=== PATIENT | female | born 1965 | race Caucasian/White ===

== ENCOUNTER 2018-01-09 05:39 | Observation (INO) ==
[2018-01-09] MEDS ORDERED: Metoprolol Tartrate 25 MG Tablet PO SCH (06:00)
[2018-01-09] MEDS ORDERED: Chlorhexidine Gluconate 2% 1 Pack (2 Cloths) TOPICAL SCH (06:00)
[2018-01-09] MEDS ORDERED: Sodium Chlor 0.9% Inj 500 ML IV.SIG SCH (06:00)
[2018-01-09] MEDS ORDERED: Heparin - SQ 10,000 UNITS/ML Vial SQ SCH (06:30)
[2018-01-09] MEDS ORDERED: ceFAZolin 2 GM IV; once IV.SIG ONE (07:00)
[2018-01-09] MEDS ORDERED: Famotidine PF Inj 20 MG/2 ML Vial ONE (07:04)
[2018-01-09] MEDS: Lidocaine 1%/Epinephrine 1:100,000 Inj 30 ML Vial ONE ×2 (08:30→15:43)
[2018-01-09] MEDS ORDERED: RESP: Albuterol Concentrated 2.5 MG/0.5 ML Neb ONE (08:52)
[2018-01-09] MEDS ORDERED: Sugammadex Inj 200 MG/2 ML Vial IV.PUSH ONE (10:23)
[2018-01-09] MEDS ORDERED: fentaNYL Citrate Inj 100 MCG/2 ML Ampul ONE (11:05)
[2018-01-09] MEDS ORDERED: KCL 20 mEq/D5W/NaCl 0.45% Inj 1,000 ML ONE (11:41)
[2018-01-09] MEDS ORDERED: Phenylephrine/NS 1000 MCG/10ML Syringe IV.PUSH ONE (12:00)
[2018-01-09] MEDS ORDERED: LORazepam 0.5 MG Tablet PO PRN (12:00)
[2018-01-09] MEDS ORDERED: Ketorolac Inj 30 MG/ML (IVP) Vial IV.PUSH ONE (12:00)
[2018-01-09] MEDS ORDERED: Normosol-R pH 7.4 Inj 1,000 ML IV.CONT ONE (12:00)
[2018-01-09] MEDS: KCL 20 mEq/D5W/NaCl 0.45% Inj 1,000 ML IV.CONT SCH ×2 (12:00→19:47)
[2018-01-09] MEDS ORDERED: Lidocaine PF 1% Inj 5 ML Syringe INFILTRATN ONE (12:00)
--- NOTE | 2018-01-09 12:07 | MP ---
cc: Lyndsey Montesinos MD, Vidya MD Bacon,Radha GARG DATE OF OPERATION: 01/09/2018 DATE OF PROCEDURE: 01/09/2018 PREOPERATIVE DIAGNOSIS: Complex atypical hyperplasia/grade 1 endometrial cancer. POSTOPERATIVE DIAGNOSIS: Complex atypical hyperplasia/grade 1 endometrial cancer. PROCEDURE PERFORMED: Robotic-assisted laparoscopic hysterectomy, bilateral salpingo-oophorectomy. SURGEON: Lyndsey Montesinos MD AUTOMATIC LATHE TENDER: [place] [employer]. ANESTHESIA: General endotracheal anesthesia. ESTIMATED BLOOD LOSS: 50 mL. IV FLUIDS: 1300 mL. URINE OUTPUT: 300 mL. HISTORY OF PRESENT ILLNESS: A 52-year-old female with postmenopausal bleeding. Biopsy showed polyps and atypical hyperplasia and an area looked good looking like a grade 1 endometrial cancer. She was counseled regarding options, surgical versus medical. She is in favor of surgical management, favors minimally invasive techniques and presents now for that endeavor. She was seen again in the preoperative holding area. Findings and plan of care were discussed. Questions were asked and answered. She expressed good understanding and agreed to move forward. FINDINGS: The uterus sounded to 8 cm. Grossly it appeared normal. Tubes and ovaries grossly appeared normal. There were no appreciable enlarged lymph nodes. The peritoneal surfaces were normal with no peritoneal implants. The uterus, once removed, showed no overt evidence of invasive disease. Residual endometrial thickening suggested hyperplasia without obvious persistent cancer on frozen section. Certainly no invasive disease. DESCRIPTION OF PROCEDURE: She was taken to the operating room and placed in dorsal lithotomy position, after general endotracheal anesthesia was administered. A timeout was undertaken. She was identified by site recognition and hospital ID bracelet and the proposed procedure was reviewed and confirmed. She was carefully positioned in padded Raymond stirrups. Her arms were padded and secured to the sides. She was further secured to the operating table with egg crate padding and tape in a cross chest over the shoulder fashion. All sites noted to be properly aligned with no malalignment or pressure points. She was prepped and draped in usual sterile fashion and placed in lithotomy position. The cervix was grasped, uterine cavity sounded, cervix dilated, a standard VCare manipulator inserted and secured in usual fashion. Earl catheter was placed in the bladder. She was returned to the low lithotomy position. Change of sterile gloves were undertaken. We confirmed an orogastric tube in the stomach on suction. With manual elevation of the abdominal wall and direct laparoscopic visualization, 5 mm cannula introduced into the left upper quadrant. Carbon dioxide gas was insufflated. A 12 mm cannula was placed in the midline above the umbilicus, 8 mm cannula was placed in the right upper quadrant and left lateral quadrant, and the original 5 mm cannula exchanged for an 8 mm cannula. The anatomy was surveyed with findings as described above. Peritoneal washings were obtained for cytology. She was placed in Trendelenburg position and the small bowel was folded back on its mesenteric root. Three Ray-Daniel sponges were placed around the root of the small bowel mesentery. Robotic system brought into the operative field, attached in the usual fashion. Monopolar scissors, fenestrated bipolar forceps and ProGrasp manipulator was placed in arms number 1, 2, and 3 respectively, and I took my place at the surgeon's console. The right round ligament isolated, cauterized, transected. The anterior and posterior leafs of the broad ligament were opened. Right ureter was identified. Right infundibulopelvic ligament was isolated to the level of the pelvic brim where it was cauterized and transected. Posterior peritoneum opened along the right side of the uterus and cervix and the right vesicouterine peritoneum dissected off the lower uterine segment and cervix. The right uterine vessels were skeletonized, cauterized and transected, as were the cardinal, paracervical and uterosacral ligaments. Attention was directed toward the left. The left round ligament was isolated, cauterized and transected. The anterior and posterior leafs of the broad ligament, opened. The colon was adherent overlying the left pelvic sidewall covering the gonadal vessels and these were taken down with sharp dissection to isolate the gonadal vessels. The left ureter was identified. The intervening peritoneum was opened. The infundibulopelvic ligament was dissected to the level of the pelvic brim, where it was cauterized and transected. The posterior peritoneum opened along the left side of the uterus and cervix and the left vesicouterine peritoneum dissected off the lower uterine segment and cervix. Left uterine vessels were isolated, cauterized and transected, as were the cardinal, paracervical and uterosacral ligaments. Circumferential colpotomy was performed, the cervix from the upper vagina. The specimen was withdrawn transvaginally which included uterus, cervix, tubes and the pneumo-occluder balloon was placed into the vagina to maintain pneumoperitoneum. Instruments 1 and 3 exchanged for needle drivers as a 0 Vicryl suture was introduced. The vaginal cuff was closed starting at the left corner full thickness closure including the posterior peritoneum edge of the uterosacral ligament. tied via instrument tie, closure was held on countertraction as a running full thickness continuous closure was carried across the vaginal cuff, continued to the contralateral corner, where it was similarly fixed, secured and tied. The needle was cut and removed. The pelvis was thoroughly irrigated. All sites hemostatic. Good margin between the bladder edge and the vaginal cuff suture line. Good peristalsis of ureters bilaterally. Pathology came back showing no invasive cancer, and it was felt that all reasonable surgical objectives had been completed. The robotic system was disengaged after the robotic instruments were removed. I reentered the bedside under sterile condition. Each of the 3 Ray-Daniel sponges were removed from the peritoneal cavity individually and each were inspected and noted to be removed in their entirety. There were no remaining foreign objects in the peritoneal cavity. Preliminary counts were correct. The 12 mm fascial defect was closed with interrupted 0 Vicryl sutures using a fascia closure needle pass apparatus. They were tied securely which rendered the fascia air tight and hemostatic. The remaining cannulas were withdrawn. Carbon dioxide gas was removed from the peritoneal cavity, and 3-0 Vicryl subcutaneous, 3-0 Vicryl subcuticular and Steri-Strips were used to close these incisions. She was returned to the dorsal lithotomy position. Pelvic exam confirmed there were no remaining foreign objects in the vagina. Vaginal cuff was well-supported, hemostatic. There was superficial irritation to the vaginal mucosa resulting from specimen manipulation, but without lacerations and to assist in continued hemostasis, 1 gram of Adele topical hemostatic agent was placed in the vaginal canal. All sites were hemostatic. There were no remaining foreign objects in the vagina. Final counts were correct. She was returned to dorsal supine position and pending reversal of anesthesia when I left the operating room to precede her to the postanesthesia care unit. MD PRAMOD Taylor/PASHA , 11:32 AM , 12:05 PM
[2018-01-09] MEDS ORDERED: *Meperidine Inj 25 MG/ML Vial PERIprocedural Use ONLY ONE (12:08)
[2018-01-09] MEDS: Ketorolac Inj 30 MG/ML (IVP) Vial IV.PUSH SCH ×2 (12:11→17:36)
[2018-01-09] MEDS: Duloxetine 60 MG DR Capsule PO SCH (21:24)
[2018-01-10] MEDS: Ketorolac Inj 30 MG/ML (IVP) Vial IV.PUSH SCH ×2 (00:28→05:10)
[2018-01-10] MEDS: KCL 20 mEq/D5W/NaCl 0.45% Inj 1,000 ML IV.CONT SCH (05:11)
--- NOTE | 2018-01-10 07:37 | P.PNONC ---
Subjective Interval history: post op day 1 patient is resting in bed, no complaints Earl discontinued pain controlled has been OOB denies any n/v ok to discharge home today restrictions reviewed Objective Vital Signs/Intake & Output: Vital Signs 01/09/18 10:55 01/09/18 11:00 01/09/18 11:15 Temperature 97.5 F L 97.5 F L 97.5 F L Pulse Rate 93 H 84 79 Respiratory Rate 14 14 14 Blood Pressure 143/63 H 138/64 136/65 Pulse Oximetry 94 L 94 L 91 L 01/09/18 11:30 01/09/18 11:45 01/09/18 12:00 Temperature 97.5 F L 97.5 F L 98.0 F Pulse Rate 78 78 78 Respiratory Rate 14 14 14 Blood Pressure 128/66 131/69 136/72 Pulse Oximetry 91 L 99 98 01/09/18 12:30 01/09/18 13:00 01/09/18 13:30 Temperature 98.0 F 98.0 F 98.0 F Pulse Rate 75 74 72 Respiratory Rate 14 14 14 Blood Pressure 120/71 147/71 H 133/75 Pulse Oximetry 98 99 100 01/09/18 14:00 01/09/18 14:41 01/09/18 14:45 Temperature 98.0 F 98.0 F Pulse Rate 74 68 70 Respiratory Rate 14 14 18 Blood Pressure 138/72 150/76 H 144/80 H Pulse Oximetry 100 100 95 01/09/18 15:00 01/09/18 15:15 01/09/18 15:30 Temperature Pulse Rate 69 68 69 Respiratory Rate 16 16 16 Blood Pressure 142/93 H 141/85 H 146/82 H Pulse Oximetry 88 L 92 L 92 L 01/09/18 16:00 01/09/18 16:30 01/09/18 19:44 Temperature 98.2 F Pulse Rate 69 70 74 Respiratory Rate 16 16 18 Blood Pressure 140/83 144/80 H 151/79 H Pulse Oximetry 92 L 93 L 92 L 01/09/18 20:22 01/10/18 00:24 01/10/18 05:08 Temperature 98 F 98.2 F Pulse Rate 78 71 Respiratory Rate 18 16 18 Blood Pressure 131/67 129/78 Pulse Oximetry 91 L 92 L 01/10/18 05:40 Temperature Pulse Rate Respiratory Rate 18 Blood Pressure Pulse Oximetry Intake & Output 01/09/18 01/10/18 01/10/18 18:59 06:59 18:59 Intake Total 2350 / 2350 2550 / 2550 Output Total 350 / 350 2650 / 2650 Balance 1999 -100 / -100 Weight 95.2 kg Intake: IV 1050 / 1050 1999 D5W/1/2NS + KCL 20 mEq Inj , 1999 / 1999 000 ML @ 125 mls/hr IV.CONT . Q8H BELLA Rx#:[id number] LR 1000 mL Inj 1,000 ML @ 30 1000 / 1000 mls/hr IV.SIG .Q24H BELLA Rx#: [id number] Ancef 2 GM Premix Inj 2 gm In 50 / 50 50 ml @ 100 mls/hr IV.SIG ONCE ONE Rx#:[id number] Oral 550 / 550 Anesthesia Amount 1300 / 1300 Output: Urine 2650 / 2650 Estimated Blood Loss 50 / 50 Urine Amount (Catheter) 300 / 300 Indwelling Urethral Catheter 300 / 300 Laboratory Results: Laboratory Results - last 24 hr 01/09/18 01/09/18 06:24 09:56 POC Glucose 185 H Blood Type A Positive Blood Type Recheck Required Antibody Screen Negative Medications: Active Medications Generic Name Dose Route Start Last Admin Trade Name Freq PRN Reason Stop Dose Admin Duloxetine HCl 60 mg 01/09/18 21:00 01/09/18 21:24 Cymbalta PO 60 mg BID BELLA Administration Lactated Ringer's 1,000 mls @ 30 mls/hr 01/09/18 06:00 01/10/18 05:05 Lr 1000 Ml Inj IV.SIG 01/12/18 05:56 Not Given .Q24H BELLA Potassium Chloride/Dextrose/Sod Cl 1,000 mls @ 125 mls/hr 01/09/18 12:00 05:11 D5w/1/2ns + Kcl 20 Meq Inj IV.CONT 125 mls/hr .Q8H BELLA Administration Levothyroxine Sodium 25 mcg 01/10/18 06:00 01/10/18 05:10 Synthroid PO 25 mcg DAILY@0600 BELLA Administration Metoprolol Tartrate 25 mg 01/09/18 06:00 01/09/18 07:35 Lopressor PO 01/12/18 05:56 Not Given COMPANY PILOT BELLA Povidone Iodine 1 applicatio 01/09/18 06:00 01/09/18 06:30 Betadine 5% Antisepsis Kit EACH NARE 01/12/18 05:56 1 applicatio COMPANY PILOT [facility] Administration Sodium Chloride 2 ml 01/09/18 21:00 01/09/18 21:24 Ns Flush IV.FLUSH Not Given BID [facility] Tramadol HCl 50 mg 01/09/18 12:00 01/09/18 19:52 Ultram PO 50 mg Q6H PRN Administration pain Objective Remarks: GENERAL: Well-nourished, well-developed patient. SKIN: Warm and dry. HEAD: Normocephalic. EYES: No scleral icterus. No injection or drainage. CARDIOVASCULAR: Regular rate and rhythm without murmurs. RESPIRATORY: Breath sounds equal bilaterally. No accessory muscle use. GASTROINTESTINAL: Abdomen soft, nondistended, SS are c/d/i EXTREMITIES: teds and scds MUSCULOSKELETAL: Adequate muscle tone. NEUROLOGICAL: No obvious focal deficit. Awake, alert, and oriented x3. PSYCHIATRIC: Appropriate mood and affect; insight and judgment normal. Assessment/Plan - Plan POD #1 ok to discharge home today ok to restart home meds will discharge with ultram mg 1 PO Q 8 hours prn pain #30 restrictions reviewed follow up in office X 2 weeks for final pathology
[2018-01-10 07:54] LABS: Baso % (Auto) 0.1 % (0.0-2.0); Hematocrit 42.6 % (35.0-46.0); Hemoglobin 13.9 gm/dL (11.6-15.3); Lymph # (Auto) 1.3 th/mm3 (1.0-4.8); Lymph % (Auto) 8.5 % (9.0-44.0); Mean Corpuscular HGB Conc 32.7 % (32.0-36.0); Mean Corpuscular Hemoglobin 29.5 pg (27.0-34.0); Mean Corpuscular Volume 90.3 fL (80.0-100.0); Mean Platelet Volume 7.8 fL (7.0-11.0); Mono # (Auto) 0.7 th/mm3 (0.0-0.9); Mono % (Auto) 4.6 % (0.0-8.0); Neut # (Auto) 13.7 th/mm3 (1.8-7.7); Neut % (Auto) 86.8 % (16.0-70.0); Platelet Count 273 th/mm3 (150-450); Red Blood Count 4.72 mil/mm3 (4.00-5.30); White Blood Count 15.8 th/mm3 (4.0-11.0)
[2018-01-10] MEDS: Duloxetine 60 MG DR Capsule PO SCH (08:09)
[2018-01-10 08:14] LABS: Calcium 9.2 mg/dL (8.5-10.1); Carbon Dioxide 20.9 meq/L (21.0-32.0); Potassium 4.1 meq/L (3.5-5.1)
== END 2018-01-10 10:44 | disposition home or self-care (01) ==
LOC: HSDI 05:39 → HSDC 05:39 → HCIN 05:39
PROVIDERS: ADMIT Obstetrics & Gynecology Gynecologic Oncology; ATTEND Obstetrics & Gynecology Gynecologic Oncology

== ENCOUNTER 2018-05-07 20:32 | Observation (INO) ==
[2018-05-07] MEDS ORDERED: MethylPREDNISolone Sod Succinate Inj 125 MG/2 ML Vial IV.PUSH ONE (20:49)
[2018-05-07] MEDS ORDERED: Famotidine PF Inj 20 MG/2 ML Vial IV.PUSH ONE (20:49)
--- NOTE | 2018-05-07 20:55 | ED ---
HPI General Chief complaint: Allergic Reaction Stated complaint: poss rash Time Seen by Provider: 05/07/18 20:49 Source: patient Mode of arrival: ambulatory Limitations: no limitations History of Present Illness HPI narrative: 52-year-old female presents to the emergency department by private transportation for complaint of urticaria. Symptoms began approximately 1600 1800 this evening. Symptoms began at work. Patient does not know any precipitating factor. No new foods detergents linens medications ink lotions pamphlets documents animal dander foods or beverages. Patient has had similar episode once before years ago. Episode was idiopathic. Patient did take Benadryl prior to arrival to the emergency department without relief. Patient denies any new medications. Patient did sustain an insect bite on Saturday but has not had any symptoms related to this. Patient saw her primary care for this. As well as having hives of the chest and back with pruritus patient has noted some scratchiness of her throat but denies any lip or tongue swelling no hoarseness no stridor. No nausea no vomiting no near syncope or syncope. No chest pain no shortness of breath no wheezing. Patient is able to identify exacerbating or alleviating factors. Patient did take Benadryl without relief. Patient has had one previous episode years ago of unclear etiology. MD complaint: Reports allergic reaction and hives Onset (ago): hour(s) (1800 at work) Exposure: Reports unknown; Denies food, medication, insect bite and plant Known history of allergy to: idiopathic x 1 years ago Symptoms: Reports rash, itching and other ("throat itchiness); Denies facial swelling, lip swelling, difficulty swallowing, difficulty breathing, tongue swelling, hoarseness, dizziness, nausea, vomiting and abdominal pain Severity: moderate Treatment prior to arrival: Reports benadryl Previous Allergic Reaction History: Reports other (once hives ) Related Data Home Medications Medication Instructions Recorded Confirmed cholecalciferol (vitamin D3) 1,000 unit PO DAILY 12/26/17 05/07/18 [Vitamin D3] duloxetine 60 mg PO BID 12/26/17 05/07/18 ibuprofen [Motrin IB] 200 mg PO Q4-6H PRN 12/26/17 05/07/18 levothyroxine 25 mcg PO DAILY 12/26/17 05/07/18 losartan 25 mg PO DAILY 12/26/17 05/07/18 rosuvastatin 10 mg PO DAILY 12/26/17 05/07/18 vitamin B complex [B 1 tab PO DAILY 12/26/17 05/07/18 Complex-Vitamin B12] Allergies Allergy/AdvReac Type Severity Reaction Status Date / Time hydromorphone [From Dilaudid] Allergy Severe Itching Verified 01/09/18 06:27 morphine Allergy Severe Itching Verified 12/26/17 14:22 nitrofurantoin Allergy Severe Rash Verified 12/26/17 14:22 [From Macrobid] silicone Allergy Severe Blister Verified 12/26/17 14:22 Review of Systems ROS: all other systems reviewed are negative [facility] Medical History Medical History (Acute) Atrial septal aneurysm (Acute) Depression (Acute) Endometrioid carcinoma (Acute) High cholesterol (Acute) History of anesthesia reaction (Acute) Hyperplasia of endometrium determined by biopsy (Acute) Hypertension (Acute) Hypothyroidism (Acute) Sleep apnea (Acute) [place] teeth extracted (Acute) Surgical History Surgical History H/O arthroscopic knee surgery (Acute) H/O discectomy (Acute) H/O laminectomy (Acute) History of dilation and curettage (Acute) Family History Family History Other Coronary artery disease Diabetes mellitus Social History Social History Second Hand Smoke Exposure: No Smoking Status: Never smoker How Often Do You Have a Drink Containing Alcohol: Monthly or less Recent Travel in [facility] within the Last 8 Weeks: No Recent Out of Country Travel within the Last 8 Weeks: No Immunization History Tetanus Immunization: >5 Years Exam Narrative Exam Narrative: GENERAL: Well-nourished, well-developed patient. No respiratory distress; no stridor no hoarseness. SKIN: Focused skin assessment warm/dry. Diffuse urticaria primarily of the trunk and anterior chest. HEAD: Normocephalic. EYES: No scleral icterus. No injection or drainage. NECK: Supple, trachea midline. No JVD or lymphadenopathy. CARDIOVASCULAR: Regular rate and rhythm without murmurs, gallops, or rubs. RESPIRATORY: Breath sounds equal bilaterally. No accessory muscle use. GASTROINTESTINAL: Abdomen soft, non-tender, nondistended. MUSCULOSKELETAL: No cyanosis, or edema. BACK: Nontender without obvious deformity. No CVA tenderness. Course Initial Documented Vital Signs Temperature 97.7 F 05/07/18 20:35 Pulse Rate 81 05/07/18 20:35 Respiratory Rate 16 05/07/18 20:35 Blood Pressure 163/79 H 05/07/18 20:35 Pulse Oximetry 98 05/07/18 20:35 Last Documented Vital Signs Temperature 98.8 F 05/08/18 00:34 Pulse Rate 87 05/08/18 00:34 Respiratory Rate 18 05/08/18 00:34 Blood Pressure 134/76 05/08/18 00:34 Pulse Oximetry 98 05/08/18 00:34 Medical Decision Making MDM Narrative Medical decision making narrative: @ 2200 still complains of pruritis; additional dose of benadryl and epi 1:[address] Luis for OBS after benadryl pepcid solumedrol and epi 1: 1000 x 3 doses and persistent urticaria and "tightness" of the throat Medical Screen Exam Complete: Yes Emergency Medical Condition: Yes Lab Data Result diagrams: 05/08/18 00:00 05/08/18 00:00 Lab Results 05/08/18 05/08/18 Range/Units 00:00 00:00 WBC 9.2 (4.0-11.0) th/mm3 RBC 4.71 (4.00-5.30) mil/mm3 Hgb 14.5 (11.6-15.3) gm/dL Hct 42.6 (35.0-46.0) % MCV 90.4 (80.0-100.0) fL MCH 30.7 (27.0-34.0) pg MCHC 34.0 (32.0-36.0) % RDW 13.8 (11.6-17.2) % Plt Count 268 (150-450) th/mm3 MPV 8.1 (7.0-11.0) fL Neut % (Auto) 61.1 (16.0-70.0) % Lymph % (Auto) 29.1 (9.0-44.0) % [place] % (Auto) 7.6 (0.0-8.0) % Eos % (Auto) 2.0 (0.0-4.0) % Baso % (Auto) 0.2 (0.0-2.0) % Neut # (Auto) 5.6 (1.8-7.7) th/mm3 Lymph # (Auto) 2.7 (1.0-4.8) th/mm3 [place] # (Auto) 0.7 (0.0-0.9) th/mm3 Eos # (Auto) 0.2 (0.0-0.4) th/mm3 Baso # (Auto) 0.0 (0.0-0.2) th/mm3 WBC Differential . Differential Comment Auto diff final Sodium 141 (136-145) meq/L Potassium 3.6 (3.5-5.1) meq/L Chloride 106 (98-107) meq/L Carbon Dioxide 28.7 (21.0-32.0) meq/L Anion Gap 6 (5-15) meq/L BUN 15 (7-18) mg/dL Creatinine 0.76 (0.50-1.00) mg/dL Estimated GFR 79 L (>89) mL/min Random Glucose 113 H (74-106) mg/dL Calcium 8.8 (8.5-10.1) mg/dL Discharge Plan Discharge Disposition Patient Disposition: 30 Still Patient Discharge Condition Condition: Stable Discharge Details Diagnosis: Idiopathic urticaria, Anaphylaxis Physicians Team ED Provider: Bhavani Nagy Primary Care Provider: Aris Alfonso Attending Provider: Florence Luis Status ED Status: Admitted Observation Patient
[2018-05-08 00:25] LABS: Baso % (Auto) 0.2 % (0.0-2.0); Eos # (Auto) 0.2 th/mm3 (0.0-0.4); Hematocrit 42.6 % (35.0-46.0); Hemoglobin 14.5 gm/dL (11.6-15.3); Lymph # (Auto) 2.7 th/mm3 (1.0-4.8); Lymph % (Auto) 29.1 % (9.0-44.0); Mean Corpuscular Hemoglobin 30.7 pg (27.0-34.0); Mean Corpuscular Volume 90.4 fL (80.0-100.0); Mean Platelet Volume 8.1 fL (7.0-11.0); Mono # (Auto) 0.7 th/mm3 (0.0-0.9); Mono % (Auto) 7.6 % (0.0-8.0); Neut # (Auto) 5.6 th/mm3 (1.8-7.7); Neut % (Auto) 61.1 % (16.0-70.0); Platelet Count 268 th/mm3 (150-450); Red Blood Count 4.71 mil/mm3 (4.00-5.30); Red Cell Distribution Width 13.8 % (11.6-17.2); White Blood Count 9.2 th/mm3 (4.0-11.0)
[2018-05-08] MEDS ORDERED: Sod Chloride 0.9% Inj 1,000 ML IV.CONT SCH ×2 (00:30→01:15)
[2018-05-08 00:49] LABS: Calcium 8.8 mg/dL (8.5-10.1); Carbon Dioxide 28.7 meq/L (21.0-32.0); Potassium 3.6 meq/L (3.5-5.1)
[2018-05-08] MEDS ORDERED: Bisacodyl 10 MG Supp RECTAL PRN (01:04)
[2018-05-08] MEDS ORDERED: Acetaminophen 325 MG Tablet PO PRN (01:04)
[2018-05-08] MEDS ORDERED: Sodium Chloride 0.9% 2 ML Flush PRN IV.FLUSH (01:24)
[2018-05-08] MEDS: MethylPREDNISolone Sod Succinate Inj 40 MG/ML Vial IV.PUSH SCH ×4 (01:43→20:23)
--- NOTE | 2018-05-08 02:35 | P.HP ---
History of Present Illness Service: [facility] Primary Care Physician: THLAIA Adams History of Present Illness: 52-year-old female with past medical history significant for obstructive sleep apnea, history of uterine cancer status post hysterectomy, diet-controlled diabetes mellitus, hypertension and hyperlipidemia presents the emergency department for evaluation of an allergic reaction. The patient reports that she became diffusely itchy last night. She reports that at work today she noticed she had hives on her chest, abdomen and a tightness in the back of her throat with accompanying itchiness. She had one episode previous in the early s of facial swelling and hives that resolved with treatment. She denies any new medications or detergents. No chest pain or shortness of breath. No abdominal pain. No nausea/vomiting/diarrhea. No fevers/chills. No lateralizing signs/symptoms. Review of Systems All other systems reviewed negative except as stated in HPI [facility] - History History Provided By: Patient - Medical History Medical History: Medical History (Last Reviewed 05/08/18 @ 02:26 by Florence Luis MD) Atrial septal aneurysm Depression Endometrioid carcinoma High cholesterol History of anesthesia reaction Hyperplasia of endometrium determined by biopsy Hypertension Hypothyroidism Sleep apnea [place] teeth extracted - Surgical History Surgical History: Surgical History (Last Reviewed 05/08/18 @ 02:26 by Florence Luis MD) H/O arthroscopic knee surgery H/O discectomy H/O laminectomy History of dilation and curettage - Family History Family History: Family History (Last Updated 05/08/18 @ 02:27 by Florence Luis MD) Other Coronary artery disease Diabetes mellitus - Social History I have reviewed the patient's Social History: Yes - Tobacco History Second Hand Smoke Exposure: No Smoking Status: Never smoker - Alcohol History How Often Do You Have a Drink Containing Alcohol: Monthly or less - Travel History Recent Travel in the [place] Within the Last 8 Weeks: No Recent Travel Out of the Country Within the Last 8 Weeks: No - Immunization History Tetanus Immunization: >5 Years Medications and Allergies Active Medications: Active Medications Acetaminophen (Tylenol) 650 mg PO Q4H PRN PRN Reason: Temp > 100.4 Bisacodyl (Dulcolax Supp) 10 mg RECTAL DAILY PRN PRN Reason: SEVERE CONSITIPATION Diphenhydramine HCl (Benadryl Inj) 50 mg IV.PUSH Q6H PRN PRN Reason: pruritis/hives Enoxaparin Sodium (Lovenox Inj) 40 mg SQ Q24H [facility] Sodium Chloride (Ns Inj) 1,000 mls @ 100 mls/hr IV.CONT .Q10H [facility] Last Admin: 05/08/18 01:43 Dose: 100 mls/hr Methylprednisolone Sodium Succinate (Solumedrol Inj) 40 mg IV.PUSH Q6H [facility] Last Admin: 05/08/18 01:43 Dose: 40 mg Ondansetron HCl (Zofran Inj) 4 mg IV.PUSH Q6H PRN PRN Reason: NAUSEA OR VOMITING Sennosides (Senokot) 17.2 mg PO Q12H PRN PRN Reason: Moderate Constipation Sodium Chloride (Ns Flush) 2 ml IV.FLUSH BID BELLA Sodium Chloride (Ns Flush) 2 ml IV.FLUSH PRN PRN PRN Reason: FLUSH AFTER USING IV ACCESS Allergies Allergy/AdvReac Type Severity Reaction Status Date / Time hydromorphone [From Dilaudid] Allergy Severe Itching Verified 01/09/18 06:27 morphine Allergy Severe Itching Verified 12/26/17 14:22 nitrofurantoin Allergy Severe Rash Verified 12/26/17 14:22 [From Macrobid] silicone Allergy Severe Blister Verified 12/26/17 14:22 Home Medications Medication Instructions Recorded Confirmed Type cholecalciferol (vitamin D3) 1,000 unit PO DAILY 12/26/17 05/07/18 History [Vitamin D3] duloxetine 60 mg PO BID 12/26/17 05/07/18 History ibuprofen [Motrin IB] 200 mg PO Q4-6H PRN 12/26/17 05/07/18 History levothyroxine 25 mcg PO DAILY 12/26/17 05/07/18 History losartan 25 mg PO DAILY 12/26/17 05/07/18 History rosuvastatin 10 mg PO DAILY 12/26/17 05/07/18 History vitamin B complex [B 1 tab PO DAILY 12/26/17 05/07/18 History Complex-Vitamin B12] Exam Vital signs: Vital Signs 05/07/18 20:35 05/07/18 21:21 05/08/18 00:34 Temperature 97.7 F 98.8 F Pulse Rate 81 87 87 Respiratory Rate 16 18 18 Blood Pressure 163/79 H 165/72 H 134/76 Pulse Oximetry 98 97 98 Intake & Output 05/07/18 05/07/18 05/08/18 06:59 18:59 06:59 Intake Total 200 / 200 Balance 200 / 200 Weight 94.347 kg Intake: IV 200 / 200 NS Inj 1,000 ML @ 125 mls/hr IV 200 / 200 .CONT .Q8H [facility] Rx#:[id number] Narrative: Gen.: No acute distress Head: Normocephalic. Atraumatic. EENT: Pupils equal round and reactive to light. Nose without drainage. Airway intact. Throat with mild erythema. No significant uvula or palate edema. Cardiovascular: Regular rate and rhythm. No murmurs, rubs or gallops. Respiratory: Lungs clear to auscultation bilaterally. No wheezes or rhonchi. Abdomen: Soft, nontender, nondistended. No peritoneal signs. Musculoskeletal: No gross deformities. No edema. Skin: Hives present on the chest and neck. Neuro: Sensory and motor grossly intact. Cranial nerves II through XII grossly intact. Results - Labs CBC & Chem 7: 05/08/18 00:00 05/08/18 00:00 Labs: Laboratory Results - last 24 hr 05/08/18 05/08/18 00:00 00:00 WBC 9.2 RBC 4.71 Hgb 14.5 Hct 42.6 MCV 90.4 MCH 30.7 MCHC 34.0 RDW 13.8 Plt Count 268 MPV 8.1 Neut % (Auto) 61.1 Lymph % (Auto) 29.1 [place] % (Auto) 7.6 Eos % (Auto) 2.0 Baso % (Auto) 0.2 Neut # (Auto) 5.6 Lymph # (Auto) 2.7 [place] # (Auto) 0.7 Eos # (Auto) 0.2 Baso # (Auto) 0.0 WBC Differential . Differential Comment Auto diff final Sodium 141 Potassium 3.6 Chloride 106 Carbon Dioxide 28.7 Anion Gap 6 BUN 15 Creatinine 0.76 Estimated GFR 79 L Random Glucose 113 H Calcium 8.8 Caprini VTE Risk Assessment Caprini VTE Risk Assessment: No/Low Risk (score <= 1) Caprini Risk Assessment Model: Point Value = 1 Point Value = 2 Point Value = 3 Point Value = 5 Age 41-60 Minor surgery BMI > 25 kg/m2 Swollen legs Varicose veins or History of unexplained or recurrent spontaneous Oral contraceptives or hormone replacement Sepsis (< 1 month) Serious lung disease, including pneumonia (< 1 month) Abnormal pulmonary function Acute myocardial infarction Congestive heart failure (< 1 month) History of inflammatory bowel disease Medical patient at bed rest Age 61-74 Arthroscopic surgery Major open surgery (> 45 min) Laparoscopic surgery (> 45 min) Malignancy Confined to bed (> 72 hours) Immobilizing plaster cast Central venous access Age >= 75 History of VTE Family history of VTE Factor V Leiden Prothrombin [id number] Lupus anticoagulant Anticardiolipin antibodies Elevated serum homocysteine Heparin-induced thrombocytopenia Other congenital or acquired thrombophilia Stroke (< 1 month) Elective arthroplasty Hip, pelvis, or leg fracture Acute spinal cord injury (< 1 month) Prophylaxis Regimen: Total Risk Factor Score Risk Level Prophylaxis Regimen 0-1 Low Early ambulation 2 Moderate Order ONE of the following: *Sequential Compression Device (SCD) *Heparin 5000 units SQ BID 3-4 Higher Order ONE of the following medications: *Heparin 5000 units SQ TID *Enoxaparin/Lovenox 40 mg SQ daily (WT < 150 kg, CrCl > 30 mL/min) *Enoxaparin/Lovenox 30 mg SQ daily (WT < 150 kg, CrCl > 10-29 mL/min) *Enoxaparin/Lovenox 30 mg SQ BID (WT < 150 kg, CrCl > 30 mL/min) AND/OR *Sequential Compression Device (SCD) 5 or more Highest Order ONE of the following medications: *Heparin 5000 units SQ TID (Preferred with Epidurals) *Enoxaparin/Lovenox 40 mg SQ daily (WT < 150 kg, CrCl > 30 mL/min) *Enoxaparin/Lovenox 30 mg SQ daily (WT < 150 kg, CrCl > 10-29 mL/min) *Enoxaparin/Lovenox 30 mg SQ BID (WT < 150 kg, CrCl > 30 mL/min) AND *Sequential Compression Device (SCD) Assessment and Plan - Plan Assessment/plan: 1. Allergic reaction Status post epinephrine IM x3, famotidine, Solu-Medrol, Benadryl IV steroids Benadryl Monitor for signs of airway compromise 2. Diet-controlled diabetes mellitus Diabetic diet Accu-Cheks ACHS 3. Hypertension/hyperlipidemia/hypothyroidism Continue home medications FEN Diabetic diet Electrolytes: Monitor and replete as needed
--- NOTE | 2018-05-08 09:05 | P.PN ---
Subjective Interval history: Follow-up urticaria. States she is feeling better denies respiratory symptoms. Her throat itching is also improved. Patient had abdominal CT with contrast last and symptoms started 4 days later. Patient reports she was told she has iodine allergy when she was young. Physical Exam Vital signs: Vital Signs 05/07/18 20:35 05/07/18 21:21 05/08/18 00:34 Temperature 97.7 F 98.8 F Pulse Rate 81 87 87 Respiratory Rate 16 18 18 Blood Pressure 163/79 H 165/72 H 134/76 Pulse Oximetry 98 97 98 05/08/18 04:37 05/08/18 07:30 Temperature 98.4 F Pulse Rate 90 79 Respiratory Rate 18 15 Blood Pressure 142/75 H Pulse Oximetry 97 99 Intake & Output 05/07/18 05/08/18 05/08/18 18:59 06:59 18:59 Intake Total 200 / 200 Balance 200 / 200 Weight 94.347 kg 94.34 kg Intake: IV 200 / 200 NS Inj 1,000 ML @ 125 mls/hr IV 200 / [address] [facility] Rx#:[id number] Other: Weight On Admission 94.34 kg Narrative: Gen.: No acute distress EENT: Airway intact. Throat with mild erythema. No significant uvula or palate edema. Cardiovascular: Regular rate and rhythm. No murmurs, rubs or gallops. Respiratory: Lungs clear to auscultation bilaterally. No wheezes or rhonchi. Abdomen: Soft, nontender, nondistended. No peritoneal signs. Musculoskeletal: No gross deformities. No edema. Skin: Hives present on the chest and neck. Neuro: Sensory and motor grossly intact. Cranial nerves II through XII grossly intact. Results - Labs CBC & Chem 7: 05/08/18 00:00 05/08/18 00:00 Laboratory Results - last 24 hr 05/08/18 05/08/18 00:00 00:00 WBC 9.2 RBC 4.71 Hgb 14.5 Hct 42.6 MCV 90.4 MCH 30.7 MCHC 34.0 RDW 13.8 Plt Count 268 MPV 8.1 Neut % (Auto) 61.1 Lymph % (Auto) 29.1 [place] % (Auto) 7.6 Eos % (Auto) 2.0 Baso % (Auto) 0.2 Neut # (Auto) 5.6 Lymph # (Auto) 2.7 [place] # (Auto) 0.7 Eos # (Auto) 0.2 Baso # (Auto) 0.0 WBC Differential . Differential Comment Auto diff final Sodium 141 Potassium 3.6 Chloride 106 Carbon Dioxide 28.7 Anion Gap 6 BUN 15 Creatinine 0.76 Estimated GFR 79 L Random Glucose 113 H Calcium 8.8 - Procedures none Assessment and Plan - Plan 1. Urticaria likely from CT contrast. Stable Status post epinephrine IM x3, famotidine, Solu-Medrol, Benadryl Ct IV steroids and start scheduled Benadryl and Pepcid Monitor for signs of airway compromise 2. Diet-controlled diabetes mellitus Diabetic diet Accu-Cheks ACHS 3. Hypertension/hyperlipidemia/hypothyroidism Continue home medications FEN Diabetic diet Electrolytes: Monitor and replete as needed DVT prophylaxis with Lovenox Discharge Planning: Possible discharge in the morning
[2018-05-08] MEDS: Duloxetine 60 MG DR Capsule PO SCH ×2 (10:38→20:23)
[2018-05-08] MEDS: Sodium Chloride 0.9% 2 ML Flush BID IV.FLUSH SCH ×2 (10:52→20:23)
[2018-05-08] MEDS: Enoxaparin Inj 40 MG/0.4 ML Syringe SQ SCH (13:11)
[2018-05-08] MEDS: Famotidine 20 MG Tablet PO SCH ×2 (13:12→20:24)
[2018-05-09] MEDS: MethylPREDNISolone Sod Succinate Inj 40 MG/ML Vial IV.PUSH SCH ×2 (02:02→09:14)
[2018-05-09 05:33] VITALS: RESP 16
[2018-05-09 05:35] VITALS: O2SAT 99
[2018-05-09 06:04] LABS: Potassium 4.1 meq/L (3.5-5.1)
[2018-05-09 06:07] LABS: Carbon Dioxide 26.2 meq/L (21.0-32.0)
[2018-05-09 06:08] LABS: Calcium 9.2 mg/dL (8.5-10.1)
[2018-05-09 06:11] LABS: Baso % (Auto) 0.1 % (0.0-2.0); Hematocrit 44.2 % (35.0-46.0); Hemoglobin 15.1 gm/dL (11.6-15.3); Lymph # (Auto) 1.2 th/mm3 (1.0-4.8); Lymph % (Auto) 5.7 % (9.0-44.0); Mean Corpuscular HGB Conc 34.1 % (32.0-36.0); Mean Corpuscular Hemoglobin 30.3 pg (27.0-34.0); Mean Corpuscular Volume 88.9 fL (80.0-100.0); Mean Platelet Volume 8.2 fL (7.0-11.0); Mono # (Auto) 0.2 th/mm3 (0.0-0.9); Mono % (Auto) 0.8 % (0.0-8.0); Neut # (Auto) 20.5 th/mm3 (1.8-7.7); Neut % (Auto) 93.4 % (16.0-70.0); Platelet Count 319 th/mm3 (150-450); Red Blood Count 4.98 mil/mm3 (4.00-5.30); Red Cell Distribution Width 13.6 % (11.6-17.2); White Blood Count 21.9 th/mm3 (4.0-11.0)
[2018-05-09] MEDS: Enoxaparin Inj 40 MG/0.4 ML Syringe SQ SCH (08:56)
[2018-05-09] MEDS: Famotidine 20 MG Tablet PO SCH (08:57)
[2018-05-09] MEDS: Duloxetine 60 MG DR Capsule PO SCH (09:13)
[2018-05-09] MEDS: Sodium Chloride 0.9% 2 ML Flush BID IV.FLUSH SCH (12:33)
--- NOTE | 2018-05-09 14:16 | P.DS ---
Date of admission: 05/08/18 00:43 Primary care physician: THALIA dAams Brief History from admission: This patient is a 52-year-old female with a diagnosis of obstructive sleep apnea , history of uterine cancer status post hysterectomy, diet-controlled diabetes, hypertension, dyslipidemia. Patient presents our emergency department with complaints of a erythematous rash on her chest as well as her neck and back. She also felt that her throat was tightening up. She was concerned that she may have a significant allergic reaction and she came into the emergency department to be evaluated. She denies a history of peanut allergy, she does admit to being allergic to iodine and received a CT with contrast 1 week prior to arrival at our emergency department. The patient was taking losartan at home and was also previously on lisinopril. DS: Medications - Discharge Medications Prescriptions: amlodipine [Norvasc] 5 mg PO DAILY #30 tab loratadine 10 mg PO DAILY #7 tab prednisone 10 mg PO DAILY #17 tab DS: Summary Hospital Course: This patient is a 52-year-old female with a diagnosis of obstructive sleep apnea , history of uterine cancer status post hysterectomy, diet-controlled diabetes, hypertension, dyslipidemia. Patient presents our emergency department with complaints of a erythematous rash on her chest as well as her neck and back. She also felt that her throat was tightening up. She was concerned that she may have a significant allergic reaction and she came into the emergency department to be evaluated. She denies a history of peanut allergy, she does admit to being allergic to iodine and received a CT with contrast 1 week prior to arrival at our emergency department. The patient was taking losartan at home and was also previously on lisinopril. 1. Urticaria Patient presented with a significant rash on her chest as well as her back. She also felt like her throat was swelling. After review of the patient's medications she was on losartan and this was concerning for early signs of possible angioedema and urticaria. The patient initially received epinephrine in the emergency department and then was admitted and started on IV steroids, and IV Benadryl. The patient was monitored closely and after couple days her symptoms improved. Her rash has improved and she is tolerating a p.o. diet without any difficulties. She has no complaint of chest pain or shortness of breath. The patient will be discharged home today. On discharge losartan will be discontinued. The patient was advised to avoid losartan, other ARB's, and LUCY inhibitors. It is unclear exactly what could have potentially caused her symptoms as she recently did receive IV contrast and has been on an ARB. She can follow-up with a primary care doctor in the next 1 week. She will be given loratadine and steroids on discharge. Scripts were given to the patient and I gave her instructions after discharge. 2. Hypertension Losartan will be held, patient will be started on Norvasc 5 mg p.o. daily. She can follow-up with a primary care doctor and her blood pressure medications can be adjusted as needed. Patient was also advised to check her blood pressure when at home. 3. Diet-controlled diabetes Patient was counseled on diet and exercise. She can continue to follow-up with her primary care doctor. 4. Dyslipidemia 5. Hypothyroidism Continue current medication regimen. - Time Spent with Patient Total time spent providing and/or coordinating discharge services: Greater than 30 minutes - Quality: VTE Deep Vein Thrombosis/Pulmonary Embolism Present on Admission: No Exam Vital signs: Vital Signs 05/08/18 17:00 05/08/18 20:00 05/09/18 00:00 Temperature 99.0 F 98.4 F Pulse Rate 90 79 Respiratory Rate 16 16 Blood Pressure 137/75 135/69 Pulse Oximetry 98 97 97 05/09/18 04:00 05/09/18 08:00 Temperature 98.8 F Pulse Rate 74 84 Respiratory Rate 16 Blood Pressure 142/84 H Pulse Oximetry 99 Intake & Output 05/08/18 05/09/18 05/09/18 18:59 06:59 18:59 Intake Total 1480 / 1480 120 / 120 Balance 1480 / 1480 120 / 120 Weight 94.34 kg 94.6 kg Intake: IV 1000 / 1000 NS Inj 1,000 ML @ 100 mls/hr IV 1000 / 1000 .CONT .Q10H [facility] Rx#:[id number] Oral 480 / 480 120 / 120 Other: Weight On Admission 94.34 kg Narrative: General patient in no acute distress HEENT extraocular movements are intact, clear oropharyngeal mucosa, no JVD Cardiovascular S1-S2 audible, RRR, no murmurs rubs or gallops Respiratory clear to auscultation bilaterally Abdomen soft, nontender, nondistended, normal bowel sounds Extremities no edema 2+ distal pulses in bilateral upper and lower extremities Neuro cranial nerves II through XII intact Results Procedures completed during hospitalization: none Labs on day of discharge: Labs from last 24 hours 05/09/18 05/09/18 05/09/18 12:06 07:52 06:15 CBC w Diff WBC RBC Hgb Hct MCV MCH MCHC RDW Plt Count MPV Neut % (Auto) Lymph % (Auto) [place] % (Auto) Eos % (Auto) Baso % (Auto) Neut # (Auto) Lymph # (Auto) [place] # (Auto) Eos # (Auto) Baso # (Auto) WBC Differential Differential Comment Sodium Potassium Chloride Carbon Dioxide Anion Gap BUN Creatinine Estimated GFR POC Glucose 183 H 135 H 136 H Random Glucose Calcium 05/09/18 05/09/18 05/08/18 04:50 04:50 22:01 CBC w Diff Auto diff final WBC 21.9 H RBC 4.98 Hgb 15.1 Hct 44.2 MCV 88.9 MCH 30.3 MCHC 34.1 RDW 13.6 Plt Count 319 MPV 8.2 Neut % (Auto) 93.4 H Lymph % (Auto) 5.7 L [place] % (Auto) 0.8 Eos % (Auto) 0.0 Baso % (Auto) 0.1 Neut # (Auto) 20.5 H Lymph # (Auto) 1.2 [place] # (Auto) 0.2 Eos # (Auto) 0.0 Baso # (Auto) 0.0 WBC Differential . Differential Comment . Sodium 141 Potassium 4.1 Chloride 106 Carbon Dioxide 26.2 Anion Gap 9 BUN 20 H Creatinine 0.89 Estimated GFR 66 L POC Glucose 155 H Random Glucose 164 H Calcium 9.2 05/08/18 05/08/18 17:31 15:19 CBC w Diff WBC RBC Hgb Hct MCV MCH MCHC RDW Plt Count MPV Neut % (Auto) Lymph % (Auto) [place] % (Auto) Eos % (Auto) Baso % (Auto) Neut # (Auto) Lymph # (Auto) [place] # (Auto) Eos # (Auto) Baso # (Auto) WBC Differential Differential Comment Sodium Potassium Chloride Carbon Dioxide Anion Gap BUN Creatinine Estimated GFR POC Glucose 176 H 227 H Random Glucose Calcium Discharge Plan - Discharge Disposition Patient Disposition: 01 Discharge Home - Discharge Condition Condition: Good - Discharge Order Discharge Orders: Discharge Order (Routine); Ordered 05/09/18 Ordered By: Shar Isebll - Physicians Team Primary Care Provider: Aris Alfonso Attending Provider: Shar Isbell
[2018-05-09 15:12] VITALS: BP 141/78; PULSE 87; TEMP 98.3
== END 2018-05-09 14:20 | disposition home or self-care (01) ==
LOC: NEPC 20:32 → NEDA 20:32 → NEDH 05-08 05:12 → PHICU 05-08 15:10 → PH3 05-08 21:15 → PHICU 05-08 21:16
PROVIDERS: ADMIT Hospitalist; ATTEND Hospitalist
DX: E78.5 Hyperlipidemia, unspecified; E11.9 Type 2 diabetes mellitus without complications; G47.33 Obstructive sleep apnea (adult) (pediatric); I10 Essential (primary) hypertension; W57.XXXA Bitten or stung by nonvenomous insect and other nonvenomous arthropods, initial encounter; Z85.43 Personal history of malignant neoplasm of ovary; Z79.899 Other long term (current) drug therapy; F32.9 Major depressive disorder, single episode, unspecified; E03.9 Hypothyroidism, unspecified; Z85.42 Personal history of malignant neoplasm of other parts of uterus; T78.40XA Allergy, unspecified, initial encounter